=== PATIENT | male | born 1995 | race Caucasian/White ===

== ENCOUNTER 2017-12-13 09:11 | Emergency (ER) | payer OTHER ==
[~2017-12-13] VITALS: Ht 182.9 cm; Wt 75.0 kg
[2017-12-13] MEDS ORDERED: DIPH,PERTUSS(ACELL),TET VAC/PF 0.5 ML IM-VACC ONE (09:30)
[2017-12-13] MEDS ORDERED: LIDOCAINE-MPF 1%, 5ML INFIL ONE (09:30)
[2017-12-13] MEDS ORDERED: LIDOCAINE 1%-EPI 1:100K, 20ML ONE (10:33)
[2017-12-13] MEDS ORDERED: PLEASE ENTER ALLERGIES MC SCH (11:00)
[2017-12-13] MEDS ORDERED: PLEASE ENTER HEIGHT AND WEIGHT MC SCH (11:00)
[2017-12-13] MEDS ORDERED: BACITRACIN ZINC OINT 500U/GM, 0.9 GM ONE ×2 (11:36→11:57)
[2017-12-13 12:06] VITALS: BP 109/59
== END 2017-12-13 12:56 | disposition home or self-care (01) ==
LOC: ED 12:11
DX: S01.81XA Laceration without foreign body of other part of head, initial encounter (principal); S00.31XA Abrasion of nose, initial encounter; V13.4XXA Pedal cycle driver injured in collision with car, pick-up truck or van in traffic accident, initial encounter; Y93.55 Activity, bike riding; Y92.89 Other specified places as the place of occurrence of the external cause; Y99.8 Other external cause status
CPT/HCPCS: 12053; 70450; 70486; 99285

== ENCOUNTER 2017-12-18 12:00 | Emergency (ER) | payer OTHER ==
[~2017-12-18] VITALS: Ht 182.9 cm; Wt 70.9 kg
[2017-12-18 12:02] VITALS: BP 111/71
[2017-12-18] MEDS ORDERED: BACITRACIN ZINC OINT 500U/GM, 0.9 GM ONE (12:29)
== END 2017-12-18 12:47 | disposition home or self-care (01) ==
LOC: ED 12:30
DX: S01.112D Laceration without foreign body of left eyelid and periocular area, subsequent encounter (principal); X58.XXXD Exposure to other specified factors, subsequent encounter
CPT/HCPCS: 99281